=== PATIENT | female | born 1960 | race Caucasian/White ===

== ENCOUNTER → 2016-12-16 | Outpatient (CLI) | payer BC ==
[~2016-12-16] MED LIST: BIOT1TAB PO; CALC-809 PO; IBUP1TAB79 PO; NORE1TAB93 PO; OMEG300C PO; OMEG500C7 PO
--- NOTE | 2016-12-17 10:10 | DI ---
Indication: ITS.REASON: M25.561 PROCEDURE: MRI KNEE RIGHT W/O CONTRAST: Encounter: Initial Comparison: None Technique: Multiplanar multisequence MR imaging of the right knee was performed without contrast. Findings: The lateral meniscus shows some mild fraying of the anterior horn but no discrete tear. There is a complex tear of the body of the medial meniscus. Portions of the posterior horn appear absent suggesting a possible flipped or displaced fragment. ACL appears torn. The PCL is intact. The MCL and lateral collateral ligament complex are intact. The extensor mechanism is intact. No acute fracture. The cartilage of the medial compartment shows deep partial and focal full-thickness loss on the femoral condyle with subtle chondral edema. Lateral compartment cartilage shows deep partial-thickness loss. Patellofemoral compartment shows focal full-thickness loss on the median ridge and lateral facet with subchondral edema. No joint effusion. Mckinney's cyst. Muscular signal intensity is within normal limits. Impression: 1. ACL tear. 2. Medial meniscal tear. 3. Mild tricompartmental osteoarthritis. .
== END ==
LOC: IMA 18:07
PROVIDERS: ATTEND Physician Assistant Surgical
DX: S83.231A Complex tear of medial meniscus, current injury, right knee, initial encounter (principal); S83.511A Sprain of anterior cruciate ligament of right knee, initial encounter; X58.XXXA Exposure to other specified factors, initial encounter; Y93.9 Activity, unspecified; Y92.9 Unspecified place or not applicable; Y99.9 Unspecified external cause status; M17.11 Unilateral primary osteoarthritis, right knee; M25.561 Pain in right knee